=== PATIENT | male | born 1970 | race Caucasian/White ===

== ENCOUNTER 2017-10-03 12:07 | Emergency (ER) | payer MEDICAID ==
[2017-10-03] MEDS ORDERED: Sodium Chloride 0.9% 1,000 ML IV SCH ×3 (14:30→17:15)
[2017-10-03] MEDS ORDERED: Iopamidol 612 MG/ML 100 ML Bottle IV SCH (16:00)
[2017-10-03] MEDS ORDERED: Sodium Chloride 0.9% 100 ML IV SCH (16:00)
[2017-10-03] MEDS ORDERED: HYDROmorphone 0.5 MG/0.5 ML Syringe IVPUSH ONE (16:20)
[2017-10-03] MEDS ORDERED: Ondansetron 4 MG/2 ML SDV IVPUSH ONE (16:20)
[2017-10-03] MEDS ORDERED: Tamsulosin 0.4 MG Cap.ER PO ONE (17:13)
[2017-10-03] MEDS ORDERED: Ketorolac 30 MG/ML SDV IVPUSH ONE (17:14)
--- NOTE | 2017-10-03 17:20 | EDM.PDOC ---
ED HPI GENERAL MEDICAL PROBLEM - General Chief Complaint: Genitourinary Problem Stated Complaint: UNABLE TO URINATE Time Seen by Provider: 10/03/17 12:40 Source of Information: Reports: Patient, Family History Limitations: Reports: No Limitations - History of Present Illness INITIAL COMMENTS - FREE TEXT/NARRATIVE: pt is going very often and in small amounts. He noted that the urine looked very bloody. H was having painless hematuria. Onset: Today, Sudden Duration: Hour(s): Location: Reports: Abdomen, Other (pt is voiding in small amounts and frequent. ) Associated Symptoms: Reports: No Other Symptoms - Related Data Allergies Allergy/AdvReac Type Severity Reaction Status Date / Time No Known Allergies Allergy Verified 10/03/17 12:39 Home Meds: Home Meds Pantoprazole Sodium [Protonix] 40 mg PO DAILY 06/14/15 [History] Naproxen 500 mg PO ASDIRECTED PRN 07/23/16 [History] Past Medical History - Past Health History Medical/Surgical History: Denies Medical/Surgical History - Infectious Disease History Infectious Disease History: Reports: Chicken Pox - Past Surgical History GI Surgical History: Reports: Colonoscopy, EGD Social & Family History - Tobacco Use Smoking Status *Q: Current Every Day Smoker Years of Tobacco use: 15 Packs/Tins Daily: 0.5 Used Tobacco, but Quit: No Second Hand Smoke Exposure: Yes - Caffeine Use Caffeine Use: Reports: Soda - Recreational Drug Use Recreational Drug Use: No ED ROS GENERAL - Review of Systems Review Of Systems: See Below Constitutional: Reports: No Symptoms HEENT: Reports: No Symptoms Respiratory: Reports: No Symptoms Cardiovascular: Reports: No Symptoms Endocrine: Reports: No Symptoms GI/Abdominal: Reports: No Symptoms : Reports: Urgency, Other (pt was only voiding in small amounts) Musculoskeletal: Reports: No Symptoms Neurological: Reports: No Symptoms Psychiatric: Reports: No Symptoms ED EXAM, RENAL/ - Physical Exam Exam: See Below Text/Narrative:: pt aRRIVED WITH A HISTORY OF BLOODY URINE. tHIS WAS NOT PAINFUL. hE HAD THE URGE TO VOID FRQENTLY Exam Limited By: No Limitations General Appearance: Alert, No Apparent Distress, Anxious, Other (PT STARTED OUT WITH NO DISTRESS. ) Ears: Normal TMs Nose: Normal Inspection Throat/Mouth: Normal Inspection Neck: Normal Inspection Respiratory/Chest: No Respiratory Distress Cardiovascular: Regular Rate, Rhythm GI/Abdominal: Other ( aFTER THE PT WAS HRE FOR AWHILE HE DEVLOPED RT FLLANK PAIN AND AT THAT TIME HE THOUGHT IT FELT LIKE A KIDNEY STONE. ) (Male) Exam: Deferred Rectal (Males) Exam: Deferred Back Exam: Normal Inspection Extremities: Normal Inspection Neurological: Alert, Oriented, Normal Cognition Course - Vital Signs Last Recorded V/S: Last Vital Signs Temp 35.7 C 10/03/17 12:37 Pulse 64 10/03/17 17:37 Resp 14 10/03/17 12:37 BP 123/88 10/03/17 17:37 Pulse Ox 96 10/03/17 17:37 - Orders/Labs/Meds Labs: Laboratory Tests 10/03/17 10/03/17 10/03/17 Range/Units 13:01 14:58 14:58 WBC 7.6 (4.5-11.0) K/uL RBC 5.01 (4.30-5.90) M/uL Hgb 16.2 H (12.0-15.0) g/dL Hct 46.2 (40.0-54.0) % MCV 92 (80-98) fL MCH 32 H (27-31) pg MCHC 35 (32-36) % Plt Count 212 (150-400) K/uL Neut % (Auto) 51 (36-66) % Lymph % (Auto) 34 (24-44) % [place] % (Auto) 8 H (2-6) % Eos % (Auto) 7 H (2-4) % Baso % (Auto) 1 (0-1) % Sodium (140-148) mmol/L Potassium (3.6-5.2) mmol/L Chloride (100-108) mmol/L Carbon Dioxide (21-32) mmol/L Anion Gap (5.0-14.0) mmol/L BUN (7-18) mg/dL Creatinine (0.8-1.3) mg/dL Est Cr Clr Drug Dosing mL/min Estimated GFR (MDRD) (>60) Glucose (74-106) mg/dL Calcium (8.5-10.1) mg/dL Total Bilirubin (0.2-1.0) mg/dL AST (15-37) U/L ALT (12-78) U/L Alkaline Phosphatase (46-116) U/L C-Reactive Protein 0.17 (0.0-0.3) mg/dL Total Protein (6.4-8.2) g/dL Albumin (3.4-5.0) g/dL Globulin (2.3-3.5) g/dL Albumin/Globulin Ratio (1.2-2.2) Urine Color Red Urine Appearance Turbid Urine pH 6.0 (4.5-8.0) Ur Specific [place] 1.015 (1.008-1.030) Urine Protein 30 H (NEGATIVE) mg/dL Urine Glucose (UA) Normal (NEGATIVE) mg/dL Urine Ketones Negative (NEGATIVE) mg/dL Urine Occult Blood Large (NEGATIVE) Urine Nitrite Negative (NEGAITVE) Urine Bilirubin Small (NEGATIVE) Urine Urobilinogen Normal (NORMAL) mg/dL Ur Leukocyte Esterase Negative (NEGATIVE) Urine RBC Packed H (0-5) Urine WBC 0-5 (0-5) Ur Epithelial Cells Not seen Amorphous Sediment Rare Urine Bacteria Not seen Urine Mucus Not seen 10/03/17 Range/Units 14:58 WBC (4.5-11.0) K/uL RBC (4.30-5.90) M/uL Hgb (12.0-15.0) g/dL Hct (40.0-54.0) % MCV (80-98) fL MCH (27-31) pg MCHC (32-36) % Plt Count (150-400) K/uL Neut % (Auto) (36-66) % Lymph % (Auto) (24-44) % [place] % (Auto) (2-6) % Eos % (Auto) (2-4) % Baso % (Auto) (0-1) % Sodium 142 (140-148) mmol/L Potassium 3.9 (3.6-5.2) mmol/L Chloride 106 (100-108) mmol/L Carbon Dioxide 28 (21-32) mmol/L Anion Gap 8.0 (5.0-14.0) mmol/L BUN 10 (7-18) mg/dL Creatinine 1.0 (0.8-1.3) mg/dL Est Cr Clr Drug Dosing 85.38 mL/min Estimated GFR (MDRD) > 60 (>60) Glucose 93 (74-106) mg/dL Calcium 8.4 L (8.5-10.1) mg/dL Total Bilirubin 0.6 (0.2-1.0) mg/dL AST 20 (15-37) U/L ALT 36 (12-78) U/L Alkaline Phosphatase 61 (46-116) U/L C-Reactive Protein (0.0-0.3) mg/dL Total Protein 6.4 (6.4-8.2) g/dL Albumin 3.6 (3.4-5.0) g/dL Globulin 2.8 (2.3-3.5) g/dL Albumin/Globulin Ratio 1.3 (1.2-2.2) Urine Color Urine Appearance Urine pH (4.5-8.0) Ur Specific [place] (1.008-1.030) Urine Protein (NEGATIVE) mg/dL Urine Glucose (UA) (NEGATIVE) mg/dL Urine Ketones (NEGATIVE) mg/dL Urine Occult Blood (NEGATIVE) Urine Nitrite (NEGAITVE) Urine Bilirubin (NEGATIVE) Urine Urobilinogen (NORMAL) mg/dL Ur Leukocyte Esterase (NEGATIVE) Urine RBC (0-5) Urine WBC (0-5) Ur Epithelial Cells Amorphous Sediment Urine Bacteria Urine Mucus Meds: Medications Discontinued Medications Generic Name Dose Route Start Last Admin Trade Name Freq PRN Reason Stop Dose Admin Hydromorphone HCl 0.5 mg 10/03/17 16:20 10/03/17 16:30 Dilaudid IVPUSH 10/03/17 16:21 0.5 mg ONETIME ONE Administration Sodium Chloride 1,000 mls @ 999 mls/hr 10/03/17 14:30 10/03/17 14:57 Normal Saline IV 999 mls/hr ASDIRECTED JUANA Administration Sodium Chloride 1,000 mls @ 999 mls/hr 10/03/17 16:00 10/03/17 16:33 Normal Saline IV 999 mls/hr ASDIRECTED JUANA Administration Sodium Chloride 100 mls @ 3 mls/sec 10/03/17 16:00 10/03/17 16:08 Normal Saline IV 3 mls/sec ASDIRECTED JUANA Administration Sodium Chloride 1,000 mls @ 999 mls/hr 10/03/17 17:15 10/03/17 17:44 Normal Saline IV 999 mls/hr ASDIRECTED JUANA Administration Iopamidol 100 ml 10/03/17 16:00 10/03/17 16:08 Isovue-300 (61%) IV 100 ml . DIRECTED JUANA Administration Ketorolac Tromethamine 30 mg 10/03/17 17:14 10/03/17 17:39 Toradol IVPUSH 10/03/17 17:15 30 mg ONETIME ONE Administration Ondansetron HCl 4 mg 10/03/17 16:20 10/03/17 16:34 Zofran IVPUSH 10/03/17 16:21 4 mg ONETIME ONE Administration Tamsulosin HCl 0.4 mg 10/03/17 17:13 10/03/17 17:39 Flomax PO 10/03/17 17:14 0.4 mg ONETIME ONE Administration - Re-Assessments/Exams Free Text/Narrative Re-Assessment/Exam: 10/03/17 17:21 JARED HAD ALOT OF BLOOD IN IT BUT IT DID NOT LOOKED INFECTED. hIS LABS OTHERWISE LOOKED GOOD. hE HAD A CAT SCAN OF THE ABDOMAN -PELVIS WHICH SHOWED A 2-3 MM DISTAL RT URETER STONE. a HERNANDEZ CATH WAS INSERTED EARLIER TO SEE IF HE WAS PUTTING OUT URINE AND TO BE SURE HE DID NOT HAV A LARGE DISTENDED BLADDER. aFTER THE STONE WAS FOUND THE CATH WAS REMOVED AND WILL SEE THAT HE IS VOIDING OK BEFORE LEAVING. hE WILL STRIN HIS URINE. Departure - Departure Time of Disposition: 18:34 Disposition: Home, Self-Care 01 Condition: Fair Clinical Impression: Calculus of distal right ureter, Dehydration, Difficulty voiding - Discharge Information Instructions: Kidney Stones, [id number], Dehydration, Adult, [id number] Referrals: PCP,None [Primary Care Provider] - Forms: ED Department Discharge Care Plan Goals: push fluids, return if any problems voiding. flomax .4 1 tab daily , cipro 500mg bid for 3 days, torodol 10mg q6h prn for pain.
[2017-10-03 17:39] VITALS: BP 123/88
== END 2017-10-03 18:52 | disposition home or self-care (01) ==
LOC: JP.ED 12:07
DX: N20.1 Calculus of ureter (principal); E86.0 Dehydration; F17.210 Nicotine dependence, cigarettes, uncomplicated; Z79.899 Other long term (current) drug therapy
CPT/HCPCS: 36415; 51702; 74177; 80053; 81001; 85025; 86140; 87086; 96360; 96361; 96374; 96375; 99284; A9270; J1170; J1885; J2405; J7030; J7040; Q9967

== ENCOUNTER 2019-07-30 08:30 | Day surgery (SDC) | payer MEDICAID ==
[~2019-07-30 08:30] MED LIST: Dextrose 5%-Lactated Ringers 1,000 ML IV SCH
[2019-07-30] MEDS ORDERED: Glycopyrrolate 0.2 MG/ML 2 ML SDV IVPUSH ONE (09:00)
[2019-07-30] MEDS ORDERED: Propofol 200 MG/20 ML SDV ONE (09:34)
[2019-07-30] MEDS ORDERED: Midazolam 1 MG/ML 2 ML SDV ONE (09:34)
[2019-07-30] MEDS ORDERED: fentaNYL 100 MCG/2 ML SDV ONE (09:34)
[2019-07-30 12:15] VITALS: BP 118/84; PULSE 64
--- NOTE | 2019-08-08 21:03 | OR ---
DATE OF PROCEDURE: 07/30/2019 SURGEON: Ashvin Holley MD PREOPERATIVE DIAGNOSIS: Worsening gastroesophageal reflux symptoms along with postprandial bloating. POSTOPERATIVE DIAGNOSES: Upper gastrointestinal endoscopy showin. 1 to 2 cm hiatal hernia with mild gastroesophageal reflux disease. 2. Diffuse moderate antral gastritis. OPERATIVE PROCEDURE: Esophagogastroduodenoscopy with: 1. Biopsies of antrum for CLOtest. 2. Biopsies of the esophagogastric junction for histologic evaluation. ANESTHESIA: IV sedation. INDICATION FOR PROCEDURE: A 49-year-old presenting with worsening reflux symptoms. He presently is on proton Protonix 40 mg daily, also has quite a bit in the way of postprandial abdominal bloating. The plan is to proceed with upper GI endoscopy for evaluation of these symptoms and biopsies as indicated. Potential risks including bleeding and perforation were discussed, and the patient wishes to proceed. DETAILS OF THE PROCEDURE: Patient was taken to the operating room and placed in a left lateral decubitus position. IV sedation was administered, after which the upper GI endoscope was passed orally through the length of the esophagus into the stomach with retroflexion view of the fundus and thereafter through the pyloric channel into the junction of the 3rd and 4th portions of duodenum. The findings included normal hypopharynx, larynx, upper esophageal sphincter, and esophageal body. At the EG junction, 1 to 2 cm hiatal hernia was present with moderately active gastroesophageal reflux disease that in terms of mucosal edema. Within the stomach, there was some patchy antral gastritis, otherwise the remainder of the stomach and duodenal exams were unremarkable. At this point, biopsies were obtained from the antrum and sent for CLOtest for H pylori, and multiple biopsies were then obtained from the esophagogastric junction for histologic evaluation. Minimal bleeding from the biopsy sites was seen and the procedure was then concluded. One of the things we were looking for is to learn that he has evidence of impaired gastric emptying with his postprandial bloating. There was no retained food items in the stomach, but I am still somewhat suspicious. Given this, we will obtain a gastric emptying study and see the patient back next week. If that is normal, the next step would likely be a Sudarshan fundoplication. Ashvin Holley MD /[id number]
== END 2019-07-30 12:10 | disposition home or self-care (01) ==
LOC: JP.SDS 08:30
PROVIDERS: ATTEND Surgery
DX: K21.9 Gastro-esophageal reflux disease without esophagitis (principal); K44.9 Diaphragmatic hernia without obstruction or gangrene; K29.70 Gastritis, unspecified, without bleeding; F17.200 Nicotine dependence, unspecified, uncomplicated; Z88.8 Allergy status to other drugs, medicaments and biological substances; Z79.899 Other long term (current) drug therapy
CPT/HCPCS: 43239; 87081; 88305; J2250; J2704; J3010; J3490; J7121

== ENCOUNTER 2019-08-10 05:29 | Inpatient (IN) | payer MEDICAID ==
[2019-08-10] MEDS ORDERED: Acetaminophen 500 MG Tab PO ONE (05:30)
[2019-08-10] MEDS ORDERED: Celecoxib 200 MG Cap PO ONE (05:30)
[2019-08-10] MEDS: Dextrose 5%-Lactated Ringers 1,000 ML IV SCH ×3 (06:34→22:54)
[2019-08-10] MEDS ORDERED: ceFAZolin 2 GM in Premix Bag 1 BAG IV ONE (06:47)
[2019-08-10] MEDS ORDERED: Propofol 200 MG/20 ML SDV ONE (07:07)
[2019-08-10] MEDS ORDERED: Glycopyrrolate 0.2 MG/ML 5 ML MDV ONE (07:07)
[2019-08-10] MEDS ORDERED: Succinylcholine 200 MG/10 ML MDV ONE (07:07)
[2019-08-10] MEDS ORDERED: Rocuronium 50 MG/5 ML Vial ONE (07:07)
[2019-08-10] MEDS ORDERED: Neostigmine Methylsulfate 1 MG/ML 5 ML Syringe ONE (07:07)
[2019-08-10] MEDS ORDERED: Dexamethasone 4 MG/ML SDV ONE (07:07)
[2019-08-10] MEDS ORDERED: Ondansetron 4 MG/2 ML SDV ONE (07:07)
[2019-08-10] MEDS ORDERED: fentaNYL 250 MCG/5 ML SDV ONE ×2 (07:08→07:47)
[2019-08-10] MEDS ORDERED: Ropivacaine 40 ML, dexAMETHasone 8 MG, EPINEPHrine 0.4 MG, Sodium Chloride 0.9% 37.6 ML NERVRT SCH ×4 (07:30)
[2019-08-10] MEDS ORDERED: Ketamine 50 MG in Sodium Chloride 0.9% 49.5 ML IV SCH (07:30)
[2019-08-10] MEDS ORDERED: Ketamine 500 MG/5 ML MDV IV SCH (07:30)
[2019-08-10] MEDS ORDERED: Labetalol 20 MG/4 ML Syringe ONE (08:42)
[2019-08-10] MEDS ORDERED: Sugammadex Sodium 200 MG/2 ML VIAL ONE (08:44)
[2019-08-10] MEDS ORDERED: HYDROmorphone 1 MG/ML Syringe IV PRN (10:17)
[2019-08-10] MEDS ORDERED: HYDROmorphone 0.5 MG/0.5 ML Syringe IVPUSH PRN (10:17)
[2019-08-10] MEDS ORDERED: Ondansetron 4 MG/2 ML SDV IVPUSH PRN (10:19)
[2019-08-10] MEDS ORDERED: hydrOXYzine HCL 100 MG/2 ML SDV IM PRN (10:19)
[2019-08-10] MEDS ORDERED: Pantoprazole 40 MG Vial IV SCH (11:30)
[2019-08-10] MEDS: Acetaminophen 500 MG Tab PO SCH ×3 (12:40→23:02)
[2019-08-10] MEDS: Metoclopramide 10 MG/2 ML SDV IV SCH ×3 (12:40→23:02)
[2019-08-10] MEDS: ceFAZolin 2 GM in Premix Bag 1 BAG IV SCH ×2 (14:20→23:02)
[2019-08-11] MEDS: Dextrose 5%-Lactated Ringers 1,000 ML IV SCH (05:50)
[2019-08-11] MEDS: Metoclopramide 10 MG/2 ML SDV IV SCH (05:53)
[2019-08-11] MEDS: Acetaminophen 500 MG Tab PO SCH (05:53)
[2019-08-11] MEDS: ceFAZolin 2 GM in Premix Bag 1 BAG IV SCH (05:53)
[2019-08-11] MEDS ORDERED: Celecoxib 200 MG Cap PO SCH (09:00)
[2019-08-11 09:37] VITALS: BP 152/74; PULSE 74
--- NOTE | 2019-08-12 09:53 | DISCH ---
ADMISSION DIAGNOSES: 1. Gastroesophageal reflux disease refractory to medical management. 2. Tobacco use disorder. 3. Elevated fasting glucose. 4. History of H pylori. DISCHARGE DIAGNOSES: 1. Diagnostic laparoscopy with: a. Sudarshan fundoplication with repair of paraesophageal hernia with mesh. b. Excision of mediastinal lipoma. c. Biopsy of paraesophageal nodule for gastroesophageal reflux disease refractory to medical management, paraesophageal hiatal hernia, mediastinal lipoma and enlarged paraesophageal nodule. Date of surgery: 08/10/2019. Surgeon: Ashvin Holley MD. HISTORY: Hussain Wan is a 49-year-old male who has had gastroesophageal reflux disease refractory to medical management. After preoperative evaluation and discussion of possible risks and possible complications, he wished to proceed with surgical procedure. HOSPITAL COURSE: Hussain had a surgery on 08/10/2019, had no operative complications. On postoperative day #1, he was able to be discharged to home. Pain was well managed. Vital signs were stable. Activity good. He received dietary instructions. PHYSICAL EXAMINATION: GENERAL: Hussain Wan is a 49-year-old male, alert and orientated. VITAL SIGNS: 5 feet 7 inches, weight 178 pounds. BMI is 27. TPR at 0330; 97.7, 83, 16. Blood pressure 118/65. HEENT: Negative. NECK: Supple. HEART: Regular rate and rhythm. LUNGS: Clear. ABDOMEN: Dressings dry and intact. Abdominal binder is on. EXTREMITIES: Without peripheral edema. DISPOSITION: Discharged to home. CONDITION: Stable and improving. FOLLOWUP: Followup appointment with Ashvin Holley MD, 08/19/2019 at 8:15 a.m. HOME MEDICATIONS: Tylenol Extra Strength 1000 mg q.6 hours scheduled for 2 weeks for pain, Celebrex 200 mg twice daily for 14 days, famotidine 20 mg oral twice daily p.r.n. GERD. Prevacid 30 mg twice daily p.r.n. heartburn, continue with Prevacid as long as taking the Celebrex. DIET: Full liquid diet for 2 weeks. Drink 8 to 10 glasses of water a day. ACTIVITY: No lifting greater than 10 pounds for 2 weeks. Other activity: Walk at least 6 times daily inside your home. Driving: Do not drive for 1 week. Shower/bathing: May shower. DISCHARGE INSTRUCTIONS: Notify provider if any fever, increased pain, nausea, vomiting. Keep site clean and dry. Wear abdominal binder for 2 weeks and then as tolerated. SPECIAL INSTRUCTION: Use incentive spirometer 10 times every hour while awake for 1 week.
--- NOTE | 2019-08-19 13:59 | OR ---
DATE OF PROCEDURE: 08/10/2019 SURGEON: Ashvin Holley MD PREOPERATIVE DIAGNOSIS: Gastroesophageal reflux disease refractory to medical management. POSTOPERATIVE DIAGNOSES: 1. Gastroesophageal reflux disease refractory to medical management associated with large paraesophageal diaphragmatic hernia. 2. Mediastinal lipoma. 3. Large paraesophageal lymph node. OPERATIVE PROCEDURES: 1. Diagnostic laparoscopy with: a. Sudarshan fundoplication with concurrent repair of paraesophageal diaphragmatic hernia with mesh (29064). b. Excision of mediastinal lipoma (42072). c. Biopsies of paraesophageal enlarged lymph node (37472). ANESTHESIA: General. TRAIN ENGINEER: Paulina Cerna PA-C INDICATIONS FOR PROCEDURE: This is a 49-year-old presenting with gastroesophageal reflux disease that has become refractory to medical management. Plan is to proceed with a Sudarsahn fundoplication. Potential risks including bleeding, infection, injury to underlying viscera, problems with fundoplication such as dysphagia, gas bloat syndrome, disorders of gastric emptying rate, as well as possibility of incomplete relief, reflux symptoms were all reviewed, and the patient wishes to proceed. DETAILS OF PROCEDURE: The patient was taken to the operating room and placed in a supine position. After general endotracheal anesthesia was induced, he was converted to a lithotomy position and the abdomen prepped and draped. 15 cm inferior and 5 cm left of the xiphoid process, transverse incision was made and peritoneal cavity entered under direct vision with an Optiview trocar, inflated to 15 mmHg pressure with CO2. Laparoscope was then inserted. No underlying trocar insertion site injuries were seen. Following this, 4 additional trocars were placed across the upper and mid abdomen. General exploration was undertaken. Upon elevation of liver, the patient was noted to have a fairly large hiatal hernia with a major paraesophageal component of this which contained perigastric fat, some gastric fundus, and a tongue of omentum. This was reduced. The peritoneum overlying incised and reflected downward. During the course of the dissection, mediastinal lipoma was encountered, as was an enlarged paraesophageal lymph node, both of which were excised and sent separately for histologic evaluation. Once the esophagus was dissected away from the crura on each side and retroesophageal window constructed, dissection of the esophagus resulted in what appeared to be an adequate intraabdominal esophageal length measuring around 5 cm. The crural repair was then accomplished posteriorly with 0 Ethibond sutures reinforced with PTFE pledgets. Because of the thickness of musculature and wide size of the diaphragmatic hernia, this was reinforced with Phasix ST mesh cut into a horseshoe pattern to fit over the crura and then slightly up onto the crura on each side and fixed with some titanium tacking screws. Beginning in the mid greater curvature, the omentum was divided away from the stomach and this was done with Harmonic Scalpel and continued up through the short gastric vessels including the highest and posterior short gastric vessels. The fundus was then retrieved through the retroesophageal window and the Anesthesia placed a guidewire, over which a 54- [place] dilator was positioned across the esophagus. A 3-stitch 2 cm fundoplication was accomplished with 0 Ethibond sutures reinforced with PTFE pledgets. Each of the sutures included bites of the underlying esophagus and the upper one included the diaphragm as well. To help fix the fundoplication in position, 1 additional stitch between the fundus and the overlying diaphragm on the left side of fundoplication was then accomplished with the same stitch pledget combination. At that point, the dilator and wire were removed. Fundoplication was inspected and found to be satisfactory, floppy in appearance. The trocars were then sequentially removed, peritoneal cavity deflated. The incision was closed with some 4-0 Vicryl skin stitch. Dressing was applied. The patient was taken to the recovery room in satisfactory condition with no evident complications. Physician children's nursery assistant, Paulina Cerna, played an essential role in assisting in this case, helping to position the patient, retract structures as needed, as well as suturing and cutting sutures when indicated. Her presence improved patient safety and decreased operative time. Ashvin Holley MD /[id number]
== END 2019-08-11 09:50 | disposition home or self-care (01) | DRG 328 ==
LOC: JP.SDS 05:29 → JP.SDSSCHI 05:29 → JP.MS 08:50 → EDSTATUS 12:05
PROVIDERS: ADMIT Surgery; ATTEND Surgery
PROC: 0DV44ZZ Restriction of Esophagogastric Junction, Percutaneous Endoscopic Approach (ICD-10-PCS; principal; 2019-08-10)
PROC: 0BUT4KZ Supplement Diaphragm with Nonautologous Tissue Substitute, Percutaneous Endoscopic Approach (ICD-10-PCS; 2019-08-10)
PROC: 0JB63ZZ Excision of Chest Subcutaneous Tissue and Fascia, Percutaneous Approach (ICD-10-PCS; 2019-08-10)
PROC: 0DB54ZX Excision of Esophagus, Percutaneous Endoscopic Approach, Diagnostic (ICD-10-PCS; 2019-08-10)
DX: K21.9 Gastro-esophageal reflux disease without esophagitis (principal); F17.210 Nicotine dependence, cigarettes, uncomplicated; K44.9 Diaphragmatic hernia without obstruction or gangrene; D17.79 Benign lipomatous neoplasm of other sites; Z88.8 Allergy status to other drugs, medicaments and biological substances; Z79.899 Other long term (current) drug therapy
CPT/HCPCS: 36415; 80053; 83735; 84100; 85027; 88304; 88305; A9270-GY; C1713; C1781; C9113; J0171; J0330; J0690; J1100; J1170; J2405; J2704; J2710; J2765; J2795; J3010; J3490; J7050; J7121

== ENCOUNTER 2020-01-04 21:32 | Emergency (ER) | payer MEDICAID ==
[2020-01-04 21:48] VITALS: BP 129/75; PULSE 64
--- NOTE | 2020-01-04 21:54 | EDM.PDOC ---
ED HPI GENERAL MEDICAL PROBLEM - General Chief Complaint: Lower Extremity Injury/Pain Stated Complaint: RT FOOT PAIN Time Seen by Provider: 01/04/20 21:47 Source of Information: Reports: Patient, Significant Other History Limitations: Reports: No Limitations - History of Present Illness Onset: Today Onset Date: 01/04/20 Onset Time: 19:00 Duration: Getting Worse Location: Reports: Lower Extremity, Right Quality: Reports: Sharp, Throbbing Severity: Severe Worsens with: Reports: Movement Context: Reports: Activity Associated Symptoms: Reports: No Other Symptoms - Related Data Allergies Allergy/AdvReac Type Severity Reaction Status Date / Time hydrocodone Allergy Headache Verified 01/04/20 21:54 Home Meds: Home Meds NK [No Known Home Meds] 01/04/20 [History] Past Medical History - Past Health History Medical/Surgical History: Denies Medical/Surgical History HEENT History: Reports: Impaired Vision Other HEENT History: wears glasses Gastrointestinal History: Reports: GERD, Helicobacter Pylori Musculoskeletal History: Reports: None - Infectious Disease History Infectious Disease History: Reports: Chicken Pox - Past Surgical History HEENT Surgical History: Reports: None GI Surgical History: Reports: Colonoscopy, EGD Musculoskeletal Surgical History: Reports: Shoulder Surgery Dermatological Surgical History: Reports: None Social & Family History - Family History Cardiac: Reports: CAD - Caffeine Use Caffeine Use: Reports: Soda Review of Systems - Review of Systems Review Of Systems: See Below Constitutional: Reports: No Symptoms Eyes: Reports: No Symptoms Nose: Reports: No Symptoms Respiratory: Reports: No Symptoms Cardiovascular: Reports: No Symptoms GI/Abdominal: Reports: No Symptoms Genitourinary: Reports: No Symptoms Musculoskeletal: Reports: Foot Pain Skin: Reports: No Symptoms ED EXAM, GENERAL - Physical Exam Exam: See Below Exam Limited By: No Limitations General Appearance: Alert, WD/WN Head: Atraumatic Neck: Normal Inspection Respiratory/Chest: No Respiratory Distress Cardiovascular: Normal Peripheral Pulses Back Exam: Normal Inspection, Full Range of Motion Extremities: Normal Inspection, No Pedal Edema, Limited Range of Motion (Decreased dorsiflexion and plantarflexion of the right foot), Other (Exquisite tenderness on palpation of the dorsum of the right foot ). No: Increased Warmth, Mottled Neurological: Alert Psychiatric: Normal Affect, Normal Mood Skin Exam: Warm, Dry, No Rash Course - Vital Signs Text/Narrative:: XR looks completely unremarkable to me. Last Recorded V/S: Last Vital Signs Temp 36.2 C 01/04/20 21:56 Pulse 64 01/04/20 21:56 Resp 16 01/04/20 21:56 BP 129/75 01/04/20 21:56 Pulse Ox 98 01/04/20 21:56 - Orders/Labs/Meds Orders: Active Orders 24 hr Category Date Time Status Foot Comp Min 3V Rt [CR] Stat Exams 01/04/20 21:58 Ordered Meds: Medications Discontinued Medications Generic Name Dose Route Start Last Admin Trade Name Sarah PRN Reason Stop Dose Admin Ibuprofen 600 mg 01/04/20 21:58 01/04/20 22:00 Motrin PO 01/04/20 21:59 600 mg ONETIME ONE Administration Departure - Departure Time of Disposition: 22:21 Disposition: Home, Self-Care 01 Clinical Impression: Foot sprain Qualifiers: Encounter type: initial encounter Laterality: right Qualified Code(s): S93.601A - Unspecified sprain of right foot, initial encounter - Discharge Information Instructions: Crutch Use, Adult, [id number], Foot Sprain, Elastic Bandage and RICE Therapy Referrals: Cami Diamond PA-C [Primary Care Provider] - Forms: ED Department Discharge Additional Instructions: Rest right foot as much as possible for the next 2 days. Elevate and ice to the foot. Use ibuprofen 600 mg orally 3 times a day for pain. If pain persists for another several days see a hand filer balance wheel Sepsis Event Note (ED) - Focused Exam Vital Signs: Vital Signs Temp Pulse Resp BP Pulse Ox 01/04/20 21:56 36.2 C 64 16 129/75 98 01/04/20 21:45 36.2 C 64 16 129/75 98 - My Orders Last 24 Hours: My Active Orders 01/04/20 21:58 Foot Comp Min 3V Rt [CR] Stat - Assessment/Plan Last 24 Hours: My Active Orders 01/04/20 21:58 Foot Comp Min 3V Rt [CR] Stat
[2020-01-04] MEDS ORDERED: Ibuprofen 600 MG Tab PO ONE (21:58)
--- NOTE | 2020-01-05 09:19 | CR ---
FOOT RIGHT 3 views CLINICAL HISTORY:No known injury, pain FINDINGS:There is a tiny ossification of the fifth interphalangeal joint laterally. This is likely chronic. No acute fracture or dislocation is identified. Impression: No fracture dislocation or focal osseous lesion
== END 2020-01-04 22:33 | disposition home or self-care (01) ==
LOC: JP.ED 21:32
DX: S93.601A Unspecified sprain of right foot, initial encounter (principal); Z88.5 Allergy status to narcotic agent; X58.XXXA Exposure to other specified factors, initial encounter
CPT/HCPCS: 73630; 99283; A9270

== ENCOUNTER 2020-04-04 09:58 | Day surgery (SDC) | payer MEDICAID ==
[~2020-04-04 09:58] MED LIST changes: -Dextrose 5%-Lactated Ringers 1,000 ML IV SCH; +Midazolam 1 MG/ML 2 ML SDV ONE; +Propofol 200 MG/20 ML SDV ONE; +fentaNYL 100 MCG/2 ML SDV ONE
[2020-04-04] MEDS: Dextrose 5%-Lactated Ringers 1,000 ML IV SCH ×2 (10:38→10:45)
[2020-04-04] MEDS ORDERED: Glycopyrrolate 0.2 MG/ML 2 ML SDV IVPUSH ONE (11:15)
[2020-04-04] MEDS ORDERED: Pantoprazole 40 MG Vial IVPUSH ONE (11:45)
[2020-04-04 12:46] VITALS: BP 120/76; PULSE 60
--- NOTE | 2020-04-11 15:17 | OR ---
DATE OF PROCEDURE: 04/04/2020 SURGEON: Ashvin Holley MD PREOPERATIVE DIAGNOSIS: Dysphagia status post Sudarshan fundoplication. POSTOPERATIVE DIAGNOSES: 1. Intact widely open Sudarshan fundoplication with some associated recurrent gastroesophageal reflux disease. 2. Moderate antral gastritis. OPERATIVE PROCEDURE: Esophagogastroduodenoscopy with: 1. Biopsies of antrum for CLOtest (97930). 2. Esophageal dilation (85630). ANESTHESIA: IV sedation. INDICATION FOR PROCEDURE: This is a 50-year-old status post Sudarshan fundoplication in July of 2019 presenting with some worsening dysphagia referable to the mid and distal esophagus. He presently is not on any antisecretory medications. The plan is to proceed with an upper GI endoscopy with biopsies and/or dilation as indicated. Potential risks including bleeding and perforation were discussed, and the patient wishes to proceed. DETAILS OF PROCEDURE: The patient was taken to the operating room and placed in a left lateral decubitus position. IV sedation was administered after which the upper GI endoscope was passed orally through the length of the esophagus and into the stomach with retroflexion view of the fundus, thereafter through the pyloric channel into the proximal duodenum. Findings included a normal hypopharynx, larynx, upper esophageal sphincter, and esophageal body. At the EG junction, the patient had an intact Sudarshan effect. There was some redness of the distal esophageal mucosa without erosions or ulcers, which was probably contributing some edema in that area, but otherwise the scope easily passed through that area with opening being quite widely patent. Within the stomach, there was some moderate redness within the antrum without erosions or ulcers and the pyloric channel and proximal duodenum were unremarkable. At this point, biopsies obtained from the antrum, sent for a CLOtest for H. pylori. Following this, a guidewire was placed into the stomach and the gastroscope removed leaving the guidewire in place. A 54-[place] Savary dilator was then placed across the wire, thus dilating the esophagus. This was held in position for 1 minute after which the guidewire and dilator were removed. Procedure was then concluded, and the patient was taken to the recovery room in satisfactory condition. Given the degree of the gastritis and some probable persistent reflux disease, the patient will be given 40 mg of Protonix IV in the recovery room and then will begin 40 mg orally daily, and we will see the patient back in 1 month for recheck. Ashvin Holley MD /[id number]
== END 2020-04-04 12:48 | disposition home or self-care (01) ==
LOC: JP.SDS 09:58
PROVIDERS: ATTEND Surgery
DX: K29.70 Gastritis, unspecified, without bleeding (principal); R13.10 Dysphagia, unspecified; K21.9 Gastro-esophageal reflux disease without esophagitis; Z98.84 Bariatric surgery status; J44.9 Chronic obstructive pulmonary disease, unspecified
CPT/HCPCS: 43239; 43248; 87081; C9113; J2250; J2704; J3010; J3490; J7121

== ENCOUNTER 2020-10-10 22:43 | Emergency (ER) | payer MEDICAID ==
[2020-10-10] MEDS ORDERED: Sodium Chloride 0.9% 1,000 ML IV SCH (23:30)
[2020-10-10] MEDS ORDERED: Ketorolac 30 MG/ML SDV IVPUSH ONE (23:30)
--- NOTE | 2020-10-10 23:33 | EDM.PDOC ---
ED HPI GENERAL MEDICAL PROBLEM - General Chief Complaint: Genitourinary Problem Stated Complaint: LEFT SIDE ABD PAIN Time Seen by Provider: 10/10/20 23:31 Source of Information: Reports: Patient, Family History Limitations: Reports: No Limitations - History of Present Illness INITIAL COMMENTS - FREE TEXT/NARRATIVE: pt arrived with pain in left flank radiating to the left groin. He does have a past history of kidney stone. He had a urine done at the clinic which showed 100 rbcs. pT WAS TOLD HE HAD A uTI. hIS URINE DID NOT LOOK PARTICULARLY POSITIVE. Onset: Today, Sudden Duration: Getting Worse Location: Reports: Abdomen Associated Symptoms: Reports: No Other Symptoms Left Lower Abdomen Pain Score (Numeric/FACES): 10 - Related Data Allergies Allergy/AdvReac Type Severity Reaction Status Date / Time hydrocodone Allergy Headache Verified 10/10/20 23:12 Home Meds: Home Meds Pantoprazole 20 mg PO BID 07/11/20 [History] Ciprofloxacin [Ciprofloxacin HCl] 500 mg PO BID 10/10/20 [History] Docusate Sodium 200 mg PO BID 10/10/20 [History] FLUoxetine HCl [Fluoxetine HCl] 40 mg PO BEDTIME 10/10/20 [History] polyethylene glycoL 3350 [Polyethylene Glycol 3350] 17 gm PO BID 10/10/20 [History] tadalafiL [Tadalafil] 2.5 mg PO DAILY 10/10/20 [History] Past Medical History - Past Health History Medical/Surgical History: Denies Medical/Surgical History HEENT History: Reports: Impaired Vision Other HEENT History: wears glasses Gastrointestinal History: Reports: GERD, Hiatal Hernia Genitourinary History: Reports: Renal Calculus Musculoskeletal History: Reports: None Other Musculoskeletal History: L knee pain - Infectious Disease History Infectious Disease History: Reports: Chicken Pox - Past Surgical History HEENT Surgical History: Reports: None GI Surgical History: Reports: Colonoscopy, EGD, Sudarshan Fundoplication Other GI Surgeries/Procedures: blood in stool Male Surgical History: Reports: None Musculoskeletal Surgical History: Reports: Shoulder Surgery Dermatological Surgical History: Reports: None Social & Family History - Family History Cardiac: Reports: CAD - Tobacco Use Tobacco Use Status *Q: Current Every Day Tobacco User Years of Tobacco use: 20 Packs/Tins Daily: 0.5 Used Tobacco, but Quit: No Second Hand Smoke Exposure: Yes - Caffeine Use Caffeine Use: Reports: None - Recreational Drug Use Recreational Drug Use: No ED ROS GENERAL - Review of Systems Review Of Systems: See Below Constitutional: Reports: No Symptoms HEENT: Reports: No Symptoms Respiratory: Reports: No Symptoms Cardiovascular: Reports: No Symptoms Endocrine: Reports: No Symptoms GI/Abdominal: Reports: Abdominal Pain : Reports: Hematuria, Other (left sidedd flank pain. ) Musculoskeletal: Reports: No Symptoms Skin: Reports: No Symptoms ED EXAM, RENAL/ - Physical Exam Exam: See Below Text/Narrative:: pt arrived with pain in the left cva area radiating to the groin. He has a past history of stones. Exam Limited By: No Limitations General Appearance: Alert, Anxious, Severe Distress Ears: Normal TMs Nose: Normal Inspection Throat/Mouth: Normal Inspection Head: Atraumatic Neck: Normal Inspection Respiratory/Chest: No Respiratory Distress Cardiovascular: Regular Rate, Rhythm GI/Abdominal: Soft, Non-Tender, Other (mild left cva tenderness) (Male) Exam: Deferred Rectal (Males) Exam: Deferred Back Exam: Normal Inspection Extremities: Normal Inspection Neurological: Alert, Oriented, Normal Cognition Psychiatric: Anxious Course - Vital Signs Last Recorded V/S: Last Vital Signs Temp 36.6 C 10/11/20 02:51 Pulse 64 10/11/20 02:51 Resp 16 10/11/20 02:51 BP 128/68 10/11/20 02:51 Pulse Ox 97 10/11/20 02:51 - Orders/Labs/Meds Labs: Laboratory Tests 10/10/20 10/10/20 Range/Units 23:35 23:35 WBC 10.5 (4.5-11.0) K/uL RBC 4.43 (4.30-5.90) M/uL Hgb 14.6 (12.0-15.0) g/dL Hct 42.7 (40.0-54.0) % MCV 96 (80-98) fL MCH 33 H (27-31) pg MCHC 34 (32-36) % Plt Count 218 (150-400) K/uL Neut % (Auto) 70 H (36-66) % Lymph % (Auto) 20 L (24-44) % [place] % (Auto) 6 (2-6) % Eos % (Auto) 4 (2-4) % Baso % (Auto) 1 (0-1) % Sodium 148 (140-148) mmol/L Potassium 4.0 (3.6-5.2) mmol/L Chloride 109 H (100-108) mmol/L Carbon Dioxide 27 (21-32) mmol/L Anion Gap 16.0 H (5.0-14.0) mmol/L BUN 12 (7-18) mg/dL Creatinine 1.1 (0.8-1.3) mg/dL Est Cr Clr Drug Dosing 75.11 mL/min Estimated GFR (MDRD) > 60 (>60) Glucose 90 (74-106) mg/dL Calcium 8.5 (8.5-10.1) mg/dL Total Bilirubin 0.4 (0.2-1.0) mg/dL AST 30 (15-37) U/L ALT 45 (12-78) U/L Alkaline Phosphatase 78 (46-116) U/L Total Protein 6.4 (6.4-8.2) g/dL Albumin 3.7 (3.4-5.0) g/dL Globulin 2.7 (2.3-3.5) g/dL Albumin/Globulin Ratio 1.4 (1.2-2.2) Meds: Medications Discontinued Medications Generic Name Dose Route Start Last Admin Trade Name Freq PRN Reason Stop Dose Admin Hydromorphone HCl 0.5 mg 10/11/20 00:37 10/11/20 00:52 Hydromorphone 0.5 Mg/0.5 Ml Syringe IVPUSH 10/11/20 00:38 0.5 mg ONETIME ONE Administration Hydromorphone HCl 1 mg 10/11/20 01:51 10/11/20 01:59 Hydromorphone 0.5 Mg/0.5 Ml Syringe IVPUSH 10/11/20 01:52 1 mg ONETIME ONE Administration Sodium Chloride 1,000 mls @ 999 mls/hr 10/10/20 23:30 10/10/20 23:55 Normal Saline IV 999 mls/hr ASDIRECTED JUANA Administration Ketorolac Tromethamine 30 mg 10/10/20 23:30 10/10/20 23:41 Ketorolac 30 Mg/Ml Sdv IVPUSH 10/10/20 23:31 30 mg ONETIME ONE Administration Ketorolac Tromethamine 15 mg 10/11/20 01:17 10/11/20 01:26 Ketorolac 30 Mg/Ml Sdv IVPUSH 10/11/20 01:18 15 mg ONETIME ONE Administration Tamsulosin HCl 0.4 mg 10/11/20 00:17 10/11/20 00:28 Tamsulosin 0.4 Mg Cap.Er PO 10/11/20 00:18 0.4 mg ONETIME ONE Administration - Re-Assessments/Exams Free Text/Narrative Re-Assessment/Exam: 10/11/20 00:19 a liter of fluids were given and a cat scan of the abdoman was obtained he was fouind to have a 2 mm stone just outside of the bladder. He was given torodol 30 mg iv and flomax .4 po. He is much more comfortable at this time. 10/11/20 01:18 pt had recurrent pain and was given dilaudid .5 and torodol 15 mg. 10/22/20 07:17 hE HAS DECIDED TO GO HOME AND TRY TO PASS THE STONE. Departure - Departure Time of Disposition: 00:36 Disposition: Home, Self-Care 01 Condition: Fair Clinical Impression: Ureteral calculus, left, Hematuria - Discharge Information Instructions: Kidney Stones, [id number] Referrals: Cami Diamond PA-C [Primary Care Provider] - Forms: ED Department Discharge Care Plan Goals: push fluids, strain all urine flomax .4 daily until the stone passes, tordol 10 mg q6h prn for pain, percocet 5/325 q6h prn for severe pain # 4 Sepsis Event Note (ED) - Evaluation Sepsis Screening Result: No Definite Risk
--- NOTE | 2020-10-11 00:13 | CRLCT ---
INDICATION: left cva pain CT ABDOMEN AND PELVIS WITHOUT CONTRAST TECHNIQUE: Multidetector CT imaging was performed through the abdomen and pelvis without intravenous contrast administration. Coronal and sagittal reconstructions were generated. COMPARISON: 10/03/2017 CT abdomen and pelvis. FINDINGS: Lower chest: Minimal bibasilar lung atelectasis. Liver: Within normal limits. Gallbladder and bile ducts: No gallbladder wall thickening or calcified gallstones. No biliary dilation identified. Pancreas: Unremarkable. Spleen: Normal. Adrenals: No nodules or masses. Kidneys, ureters, and urinary bladder: 2 millimeter stone in the distal left ureter just above the ureterovesical junction on image 174 of series 2, producing very mild dilation of the left ureter and very mild left hydronephrosis. No other urinary tract stones are noted. No bladder mass or definite wall thickening. Gastrointestinal tract: Interval postoperative changes at the esophagogastric junction, possibly reflecting Sudarshan fundoplication. Normal caliber bowel without wall thickening. The appendix is normal. Vascular structures: Normal for age. Peritoneum: No free air, abscess, or significant free fluid. Lymph nodes: No pathologically enlarged nodes identified. Reproductive organs: Upper normal prostate size. Bones: Minor spinal degenerative changes. IMPRESSION: Mildly obstructing 2 millimeter stone in the distal left ureter producing very mild left hydroureteronephrosis. ELLYN HURST MD [facility] Dictated by Antolin Hurst MD @ 10/11/2020 12:11:23 AM Dictated by: Antolin Hurst MD @ 10/11/2020 00:12:18 (Electronically Signed)
[2020-10-11] MEDS ORDERED: Tamsulosin 0.4 MG Cap.ER PO ONE (00:17)
[2020-10-11] MEDS ORDERED: HYDROmorphone 0.5 MG/0.5 ML Syringe IVPUSH ONE ×2 (00:37→01:51)
[2020-10-11] MEDS ORDERED: Ketorolac 30 MG/ML SDV IVPUSH ONE (01:17)
[2020-10-11 02:51] VITALS: BP 128/68; PULSE 64
== END 2020-10-11 02:52 | disposition home or self-care (01) ==
LOC: JP.ED 22:43
DX: N13.2 Hydronephrosis with renal and ureteral calculous obstruction (principal); R31.9 Hematuria, unspecified; K21.9 Gastro-esophageal reflux disease without esophagitis; Z79.899 Other long term (current) drug therapy; Z88.5 Allergy status to narcotic agent; Z72.0 Tobacco use
CPT/HCPCS: 36415; 74176; 80053; 85025; 96374; 96375; 96376; 99284; A9270; J1170; J1885; J7030

== ENCOUNTER 2021-09-25 05:59 | Day surgery (SDC) | payer MEDICAID ==
[2021-09-25] MEDS ORDERED: Dextrose 5%-Lactated Ringers 1,000 ML IV SCH (06:30)
[2021-09-25] MEDS ORDERED: fentaNYL 100 MCG/2 ML SDV ONE (06:52)
[2021-09-25] MEDS ORDERED: Midazolam 1 MG/ML 2 ML SDV ONE (06:52)
[2021-09-25] MEDS ORDERED: Propofol 200 MG/20 ML SDV ONE (06:52)
[2021-09-25] MEDS ORDERED: Glycopyrrolate 0.2 MG/ML 2 ML SDV IVPUSH ONE (07:15)
[2021-09-25 08:25] VITALS: PULSE 79
[2021-09-25 08:42] VITALS: BP 122/87
== END 2021-09-25 08:43 | disposition home or self-care (01) ==
LOC: JP.SDS 05:59
PROVIDERS: ATTEND Surgery
DX: K29.60 Other gastritis without bleeding (principal); K21.9 Gastro-esophageal reflux disease without esophagitis; K44.9 Diaphragmatic hernia without obstruction or gangrene; F17.200 Nicotine dependence, unspecified, uncomplicated; Z88.8 Allergy status to other drugs, medicaments and biological substances; Z98.84 Bariatric surgery status
CPT/HCPCS: 87081; 88305; J2250; J2704; J3010; J3490; J7121

== ENCOUNTER 2021-11-03 07:42 | Inpatient (IN) | payer MEDICAID ==
[~2021-11-03 07:42] MED LIST changes: -Midazolam 1 MG/ML 2 ML SDV ONE; -Propofol 200 MG/20 ML SDV ONE; +Succinylcholine 200 MG/10 ML MDV ONE; -fentaNYL 100 MCG/2 ML SDV ONE
[2021-11-03] MEDS ORDERED: Dextrose 5%-Lactated Ringers 1,000 ML IV SCH (08:15)
[2021-11-03] MEDS ORDERED: Acetaminophen 500 MG Tab PO ONE (08:30)
[2021-11-03 08:42] LABS: HEMOGLOBIN A1C 5.7 % (4.5-6.2)
[2021-11-03] MEDS ORDERED: Ketamine 19 MG in Sodium Chloride 0.9% 19.81 ML IV SCH (09:45)
[2021-11-03] MEDS ORDERED: Ketamine 500 MG/5 ML MDV IV SCH (09:45)
[2021-11-03] MEDS ORDERED: cefOXitin 2 GM in Sodium Chloride 0.9% 50 ML IV ONE (10:00)
[2021-11-03] MEDS ORDERED: Rocuronium 50 MG/5 ML Vial ONE (10:24)
[2021-11-03] MEDS ORDERED: Propofol 200 MG/20 ML SDV ONE (10:24)
[2021-11-03] MEDS ORDERED: fentaNYL 250 MCG/5 ML SDV ONE (10:24)
[2021-11-03] MEDS ORDERED: Dexamethasone 4 MG/ML SDV ONE (10:30)
[2021-11-03] MEDS ORDERED: Ondansetron 4 MG/2 ML SDV ONE (10:30)
[2021-11-03] MEDS ORDERED: Neostigmine Methylsulfate 1 MG/ML 5 ML Syringe ONE (10:30)
[2021-11-03] MEDS ORDERED: Glycopyrrolate 0.2 MG/ML 5 ML MDV ONE (10:30)
[2021-11-03] MEDS ORDERED: Ondansetron 4 MG/2 ML SDV IVPUSH PRN ×2 (11:08→14:00)
[2021-11-03] MEDS ORDERED: diphenhydrAMINE 25 MG Cap PO PRN (11:08)
[2021-11-03] MEDS ORDERED: Naloxone 0.4 MG/ML SDV IVPUSH PRN (11:08)
[2021-11-03] MEDS ORDERED: diphenhydrAMINE 50 MG/ML SDV IVPUSH PRN ×2 (11:08→14:00)
[2021-11-03] MEDS ORDERED: ePHEDrine 50 MG/ML SDV ONE (11:10)
[2021-11-03] MEDS ORDERED: Sodium Chloride 0.9% 10 ML ONE (11:10)
[2021-11-03] MEDS: HYDROmorphone/Normal Saline 6 MG/30 ML PCA Vial IV PRN ×2 (11:22→18:37)
[2021-11-03] MEDS: Meropenem 500 MG SDV ONE ×3 (11:29→12:22)
[2021-11-03] MEDS ORDERED: fentaNYL 100 MCG/2 ML SDV ONE ×2 (11:54→12:39)
[2021-11-03] MEDS ORDERED: Naloxone 0.4 MG/ML SDV IV PRN (12:00)
[2021-11-03] MEDS ORDERED: Lactated Ringers 1,000 ML ONE (12:16)
[2021-11-03] MEDS ORDERED: hydrOXYzine HCL 100 MG/2 ML SDV IM ONE (13:23)
[2021-11-03] MEDS ORDERED: Albuterol/Ipratropium 3.0-0.5 MG/3 ML Neb Soln INH PRN (13:28)
[2021-11-03] MEDS ORDERED: Scopolamine 1.5 MG Transdermal Patch TOP PRN (13:35)
[2021-11-03] MEDS: Cyclobenzaprine 10 MG Tab PO PRN ×2 (13:57→23:39)
[2021-11-03] MEDS ORDERED: Labetalol 20 MG/4 ML Syringe IVPUSH PRN (14:00)
[2021-11-03] MEDS ORDERED: hydrOXYzine HCL 100 MG/2 ML SDV IM PRN (14:00)
[2021-11-03] MEDS ORDERED: Acetaminophen 500 MG Tab PO PRN (14:00)
[2021-11-03] MEDS ORDERED: Metoclopramide 10 MG/2 ML SDV IVPUSH PRN (14:00)
[2021-11-03] MEDS ORDERED: MVI, Adult with Vitamin K 10 ML, Thiamine 200 MG, Zinc/Copper/Manganese/Selenium 1 ML i... IV SCH ×4 (16:00)
[2021-11-03] MEDS ORDERED: Pantoprazole 40 MG Vial IVPUSH SCH (16:00)
[2021-11-03] MEDS: Propranolol 40 MG Tab PO SCH ×2 (16:31→21:16)
[2021-11-03] MEDS: Acetaminophen 500 MG Tab PO SCH ×2 (16:31→23:42)
[2021-11-03] MEDS: cefOXitin 2 GM in Sodium Chloride 0.9% 50 ML IV SCH ×2 (16:37→21:19)
[2021-11-03] MEDS: Heparin Sodium 5,000 Units/ML Vial SUBCUT SCH (21:15)
[2021-11-03] MEDS: FLUoxetine 20 MG Cap PO SCH (21:16)
[2021-11-03] MEDS: Dextrose 5%-Lactated Ringers 1,000 ML IV SCH (23:39)
[2021-11-04] MEDS: cefOXitin 2 GM in Sodium Chloride 0.9% 50 ML IV SCH ×4 (04:25→21:33)
[2021-11-04] MEDS ORDERED: Iopamidol 612 MG/ML 50 ML SDV PO PRN (04:35)
[2021-11-04] MEDS: Dextrose 5%-Lactated Ringers 1,000 ML IV SCH (05:54)
[2021-11-04] MEDS: HYDROmorphone/Normal Saline 6 MG/30 ML PCA Vial IV PRN ×2 (06:43→15:26)
[2021-11-04] MEDS: Acetaminophen 500 MG Tab PO SCH ×3 (08:10→23:59)
[2021-11-04] MEDS: Celecoxib 200 MG Cap PO SCH ×2 (08:11→21:33)
[2021-11-04] MEDS: Propranolol 40 MG Tab PO SCH ×3 (08:11→21:33)
[2021-11-04] MEDS: Cyclobenzaprine 10 MG Tab PO PRN ×2 (08:11→17:08)
[2021-11-04] MEDS: Heparin Sodium 5,000 Units/ML Vial SUBCUT SCH ×2 (08:12→21:32)
[2021-11-04] MEDS: Tamsulosin 0.4 MG Cap.ER PO SCH (08:12)
[2021-11-04] MEDS: TADALAFIL 2.5 MG PO SCH (09:49)
[2021-11-04] MEDS ORDERED: MVI, Adult with Vitamin K 10 ML, Thiamine 200 MG, Zinc/Copper/Manganese/Selenium 1 ML i... IV SCH ×4 (16:00)
[2021-11-04] MEDS ORDERED: Pantoprazole 40 MG Delayed-Release Granules 1 Packet PO SCH (16:30)
[2021-11-04] MEDS: FLUoxetine 20 MG Cap PO SCH (21:33)
[2021-11-05] MEDS: Dextrose 5%-Lactated Ringers 1,000 ML IV SCH ×2 (02:09→08:48)
[2021-11-05] MEDS ORDERED: Bupivacaine 0.5% 50 ML MDV ONE (06:52)
[2021-11-05] MEDS ORDERED: Lidocaine 1% with EPINEPHrine 1:100,000 50 ML MDV ONE (06:52)
[2021-11-05] MEDS ORDERED: Meropenem 500 MG SDV ONE (06:52)
[2021-11-05] MEDS ORDERED: fentaNYL 100 MCG/2 ML SDV ONE (07:09)
[2021-11-05] MEDS ORDERED: Midazolam 1 MG/ML 2 ML SDV ONE (07:09)
[2021-11-05] MEDS ORDERED: Propofol 200 MG/20 ML SDV ONE ×2 (07:09→07:34)
[2021-11-05] MEDS ORDERED: Cyanocobalamin (Vitamin B12) 1,000 MCG/ML SDV IM ONE (09:00)
[2021-11-05] MEDS: Acetaminophen 500 MG Tab PO SCH (09:09)
[2021-11-05] MEDS: Propranolol 40 MG Tab PO SCH (09:10)
[2021-11-05] MEDS: Heparin Sodium 5,000 Units/ML Vial SUBCUT SCH (09:10)
[2021-11-05] MEDS: Celecoxib 200 MG Cap PO SCH (09:10)
[2021-11-05] MEDS: Tamsulosin 0.4 MG Cap.ER PO SCH (09:10)
[2021-11-05] MEDS ORDERED: HYDROmorphone 2 MG Tab PO PRN (09:37)
[2021-11-05] MEDS: TADALAFIL 2.5 MG PO SCH (09:40)
[2021-11-05 11:15] VITALS: BP 132/80; PULSE 58
== END 2021-11-05 12:35 | disposition home or self-care (01) | DRG 328 ==
LOC: JP.SDSSCHI 07:42 → JP.SDS 07:42 → JP.MS 13:50 → EDSTATUS 14:15
PROVIDERS: ADMIT Surgery; ATTEND Surgery
PROC: 0D150ZA Bypass Esophagus to Jejunum, Open Approach (ICD-10-PCS; principal; 2021-11-03)
PROC: 0FB20ZZ Excision of Left Lobe Liver, Open Approach (ICD-10-PCS; 2021-11-03)
PROC: 0BQT0ZZ Repair Diaphragm, Open Approach (ICD-10-PCS; 2021-11-03)
PROC: 0WQF0ZZ Repair Abdominal Wall, Open Approach (ICD-10-PCS; 2021-11-03)
DX: K21.00 Gastro-esophageal reflux disease with esophagitis, without bleeding (principal); K58.1 Irritable bowel syndrome with constipation; K44.9 Diaphragmatic hernia without obstruction or gangrene; K31.84 Gastroparesis; G56.03 Carpal tunnel syndrome, bilateral upper limbs; M54.6 Pain in thoracic spine; M54.2 Cervicalgia; Z98.890 Other specified postprocedural states; Z79.899 Other long term (current) drug therapy; Z88.5 Allergy status to narcotic agent; F17.210 Nicotine dependence, cigarettes, uncomplicated
CPT/HCPCS: 36415; 74240; 74240-26; 80053; 83036; 83735; 84100; 85027; A9270-GY; C9113; J0171; J0330; J0694; J1100; J1170; J1644; J2185; J2250; J2405; J2704; J2710; J2795; J3010; J3410; J3411; J3420; J3490; J7120; J7121; Q9967

== ENCOUNTER 2022-01-19 07:16 | Day surgery (SDC) | payer MEDICAID ==
[~2022-01-19 07:16] MED LIST changes: +Midazolam 1 MG/ML 2 ML SDV ONE; +Propofol 200 MG/20 ML SDV ONE; -Succinylcholine 200 MG/10 ML MDV ONE; +fentaNYL 100 MCG/2 ML SDV ONE
[2022-01-19] MEDS ORDERED: Dextrose 5%-Lactated Ringers 1,000 ML IV SCH (07:45)
[2022-01-19] MEDS ORDERED: MVI, Adult with Vitamin K 10 ML, Thiamine 200 MG, Zinc/Copper/Manganese/Selenium 1 ML i... IV ONE ×4 (08:00)
[2022-01-19 08:15] LABS: ESTIMATED GFR 107 mL/min (>60)
[2022-01-19 12:22] VITALS: BP 102/68; PULSE 48
== END 2022-01-19 12:38 | disposition home or self-care (01) ==
LOC: JP.SDS 07:16
PROVIDERS: ATTEND Surgery
DX: K91.89 Other postprocedural complications and disorders of digestive system (principal); K22.2 Esophageal obstruction; E11.9 Type 2 diabetes mellitus without complications; K21.9 Gastro-esophageal reflux disease without esophagitis; F17.200 Nicotine dependence, unspecified, uncomplicated; Z98.890 Other specified postprocedural states; Z88.5 Allergy status to narcotic agent
CPT/HCPCS: 36415; 43249; 76000; 80053; 83735; 84100; 85027; J2250; J2704; J3010; J3411; J7120; J7121

== ENCOUNTER → 2022-06-08 | Day surgery (SDC) | payer MEDICAID ==
[~2022-06-08] MED LIST changes: +Dextrose 5%-Lactated Ringers 1,000 ML IV SCH; +Glycopyrrolate 0.2 MG/ML 2 ML SDV IVPUSH ONE; -Midazolam 1 MG/ML 2 ML SDV ONE; -fentaNYL 100 MCG/2 ML SDV ONE; +fentaNYL 50 MCG/ML SDV ONE
[2022-06-08 08:28] VITALS: BP 105/65; PULSE 57
== END ==
LOC: JP.SDS 05:59
PROVIDERS: ATTEND Surgery
DX: R13.10 Dysphagia, unspecified (principal); Z98.84 Bariatric surgery status; Z79.899 Other long term (current) drug therapy; Z88.5 Allergy status to narcotic agent
CPT/HCPCS: 43235; J2704; J3010; J3490; J7121

== ENCOUNTER 2022-11-19 21:08 | Emergency (ER) | payer MEDICAID ==
[2022-11-19 21:40] VITALS: BP 111/66; PULSE 68
[2022-11-19] MEDS ORDERED: Bacitracin Oint 1 GM U/D Packet TOP ONE (22:04)
[2022-11-19] MEDS ORDERED: Diphtheria,Pertussis(Acell),Tetanus Vaccine 0.5 ML Syringe IM ONE (22:07)
== END 2022-11-19 22:36 | disposition home or self-care (01) ==
LOC: JP.ED 21:08
DX: S81.812A Laceration without foreign body, left lower leg, initial encounter (principal); F17.210 Nicotine dependence, cigarettes, uncomplicated; Z86.16 Personal history of COVID-19; Z23 Encounter for immunization; Z88.5 Allergy status to narcotic agent; W29.3XXA Contact with powered garden and outdoor hand tools and machinery, initial encounter
CPT/HCPCS: 12032; 90471; 90715; 99282-25